=== PATIENT | male | born 1970 | race Caucasian/White ===

== ENCOUNTER 2018-12-25 18:09 | Emergency (ER) | payer OTHER ==
[2018-12-25 18:18] VITALS: BP 146/96
--- NOTE | 2018-12-25 18:22 | ED Physician Documentation ---
PD HPI UPPER EXT INJURY - Stated complaint Stated Complaint: RIGHT HAND FINGER INJ. - Chief complaint Chief Complaint: Ext Problem - History obtained from History obtained from: Patient - History of Present Illness Location: Right, Finger (2nd) Type of injury: Blunt / blow (He was pulling over a tree and it snapped and hit his second finger last night.) Review of Systems Constitutional: reports: Reviewed and negative Cardiac: reports: Reviewed and negative Respiratory: reports: Reviewed and negative PD PAST MEDICAL HISTORY - Present Medications Home Medications: Ambulatory Orders Medication Instructions Recorded Confirmed Dextroamphetamine/Amphetamine 25 mg PO 12/25/18 [Adderall Xr 25 mg Capsule] - Allergies Allergies/Adverse Reactions: Allergies Allergy/AdvReac Type Severity Reaction Status Date / Time No Known Drug Allergies Allergy Verified 12/25/18 18:17 PD ED PE NORMAL - Vitals Vital signs reviewed: Yes - General General: Alert and oriented X 3, No acute distress - Extremities Extremities: Other (The right second finger is pretty swollen and bruised on the palmar surface. He has difficulty with flexion but he can flex it. It seems like the difficulty is due to the swelling as opposed to a tendon injury. Normal neurovascular function of the tip. He is tender about the PIP.) - Neuro Neuro: Alert and oriented X 3, Normal speech Results - Vitals Vitals: Vital Signs - 24 hr 12/25/18 18:15 Temperature 36.7 C Heart Rate 53 L Respiratory 16 Rate Blood Pressure 146/96 H O2 Saturation 100 Oxygen O2 Source Room air - Rads (name of study) R 2nd finger Radiology: EMP read contemporaneously (There is a little avulsion fracture of the proximal phalanx, palmar side) Procedures - Splint (location) R 2nd finger Splint applied by: Physician Type of splint: Metal foam finger splint Other: Patient tolerated well, No complications Departure - Departure Disposition: 01 Home, Self Care Clinical Impression: Fracture of phalanx of right hand, closed Qualifiers: Encounter type: initial encounter Finger: index finger Phalanx: middle Fracture alignment: nondisplaced Qualified Code(s): S62.650A - Nondisplaced fracture of middle phalanx of right index finger, initial encounter for closed fracture Condition: Good Record reviewed to determine appropriate education?: Yes Instructions: ED Fx Finger Closed Follow-Up: [facility] [Provider Group] - Within 1 week Comments: Keep the splint on and dry, follow-up with the orthopedic surgeon within the week. Return for new or worsening symptoms. Ibuprofen as needed for pain.
--- NOTE | 2018-12-25 19:18 | XRAY Report ---
Reason: 2nd finger inj Procedure Date: 12/25/2018 Accession Number: [id number] / [id number] Procedure: XR - Finger(s) RT CPT Code: FULL RESULT: EXAM: RIGHT SECOND DIGIT RADIOGRAPHY EXAM DATE: 12/25/2018 06:27 PM. CLINICAL HISTORY: Swelling and pain of second digit COMPARISON: None. TECHNIQUE: 3 views. FINDINGS: Bones: Normal. No fracture or bone lesion. Joints: Normal. No subluxations. Soft Tissues: There is soft tissue swelling of the second digit. No foreign body. IMPRESSION: Soft tissue swelling without fracture or foreign body. RADIA ADDENDUM: 12/25/18 19:43 There is a hairline lucency through the middle phalanx at PIP joint which could represent an acute nondisplaced fracture.
== END 2018-12-25 18:55 | disposition home or self-care (01) ==
LOC: ED 18:09
DX: S62.650A Nondisplaced fracture of middle phalanx of right index finger, initial encounter for closed fracture (principal); W20.8XXA Other cause of strike by thrown, projected or falling object, initial encounter; Y93.H2 Activity, gardening and landscaping
CPT/HCPCS: 73140; 99282; 99283

== ENCOUNTER 2021-06-06 15:42 | Emergency (ER) | payer OTHER ==
[2021-06-06] MEDS ORDERED: IOVERSOL 320 100 ML VIAL IVP ONE ×2 (16:53→17:54)
[2021-06-06 17:00] LABS: MUDS CUTOFF CONCENTRATIONS CUTOFF CONC BELOW:
[2021-06-06 17:03] LABS: BILIRUBIN,URINE NEGATIVE (NEGATIVE); GLUCOSE, URINE (UA) NEGATIVE (NEGATIVE); KETONES,URINE (UA) NEGATIVE (NEGATIVE); LEUKOCYTE ESTERASE, URINE NEGATIVE (NEGATIVE); NITRITE,URINE NEGATIVE (NEGATIVE); OCCULT BLOOD,URINE TRACE-INTA (NEGATIVE); PH,URINE 5.5 PH (5.0-7.5); PROTEIN,URINE NEGATIVE (NEGATIVE); UROBILINOGEN,URINE 0.2 (NORMAL) E.U./dL (NORMAL)
[2021-06-06 17:04] LABS: BASOPHILS % (AUTO) 0.3 %; EOSINOPHILS % (AUTO) 0.4 %; HCT - HEMATOCRIT 45.3 % (42.0-52.0); LYMPHOCYTES # (AUTO) 1.6 10^3/uL (1.5-3.5); LYMPHOCYTES % (AUTO) 21.2 %; MEAN CORPUSCULAR HEMOGLOBIN 31.4 pg (27.0-31.0); MEAN CORPUSCULAR HGB CONC 35.3 g/dL (32.0-36.0); MEAN CORPUSCULAR VOLUME 88.8 fL (80.0-94.0); MEAN PLATELET VOLUME 9.1 fL (7.4-11.4); MONOCYTES # (AUTO) 0.6 10^3/uL (0.0-1.0); MONOCYTES % (AUTO) 7.4 %; NEUTROPHILS # (AUTO) 5.2 10^3/uL (1.5-6.6); NEUTROPHILS % (AUTO) 70.4 %; PLT - PLATELET COUNT 196 10^3/uL (130-450); RED CELL DISTRIBUTION WIDTH 12.1 % (12.0-15.0); WHITE BLOOD COUNT 7.4 x10^3/uL (4.8-10.8)
[2021-06-06 17:05] LABS: CLARITY,URINE CLEAR (CLEAR)
[2021-06-06 17:13] LABS: ACETAMINOPHEN < 10 ug/mL (10-30); ALBUMIN 4.6 g/dL (3.2-5.5); ALBUMIN/GLOBULIN RATIO 1.6 (1.0-2.2); ALKALINE PHOSPHATASE 78 IU/L (42-121); ALT ALANINE AMINOTRANSFERASE 30 IU/L (10-60); AST ASPARTATE AMINOTRANSFERASE 25 IU/L (10-42); BILIRUBIN,TOTAL 0.6 mg/dL (0.2-1.0); BUN - BLOOD UREA NITROGEN 17 mg/dL (6-20); CALCIUM 9.2 mg/dL (8.5-10.3); CARBON DIOXIDE - CO2 26 mmol/L (21-32); CHLORIDE 101 mmol/L (101-111); CREATININE 0.9 mg/dL (0.6-1.2); ETOH - ETHANOL < 5.0 mg/dL; GFR - MDRD 88 (>89); GLUCOSE 158 mg/dL (70-100); POTASSIUM 3.7 mmol/L (3.5-5.0); SALICYLATE < 6.0 mg/dL; SODIUM 135 mmol/L (135-145); TOTAL PROTEIN 7.4 g/dL (6.7-8.2)
[2021-06-06 17:14] LABS: AMPHETAMINE SCREEN,URINE POSITIVE (NEGATIVE); BARBITURATE SCREEN,UR NEGATIVE (NEGATIVE); BENZODIAZEPINES SCREEN, URINE NEGATIVE (NEGATIVE); COCAINE SCREEN URINE NEGATIVE (NEGATIVE); METHADONE SCREEN, URINE NEGATIVE (NEGATIVE); METHAMPHETAMINES SCREEN, URINE NEGATIVE (NEGATIVE); OPIATE SCREEN, URINE NEGATIVE (NEGATIVE); OXYCODONE SCREEN, URINE NEGATIVE (NEGATIVE); PROPOXYPHENE SCREEN, URINE NEGATIVE (NEGATIVE); THC CANNABINOID SCREEN, URINE NEGATIVE (NEGATIVE); TRICYCLIC ANTIDEPRESSANT,URINE NEGATIVE (NEGATIVE)
--- NOTE | 2021-06-06 17:33 | ED Physician Documentation ---
History of Present Illness - Stated complaint Stated Complaint: CONFUSION - Chief complaint Chief Complaint: Neuro - History obtained from History obtained from: Patient - History of Present Illness Timing: Today Pain level max: 0 Pain level now: 0 - Additonal information Additional information: Patient is a 51-year-old male who comes into the emergency department complaint of intermittent confusion for the past year. He states has been worse since starting the new antipsychotic medication 2 weeks ago. He denies any focal numbness or weakness. No speech difficulties. Occasionally has difficulty reading words. He states that he had a "mental break" 1 year ago. He is currently under the care of a psychiatrist. He states he is currently feeling better. No facial droop. No difficulty walking. No difficulty with urination or defecation. No headache. No trauma. No fevers. No chills. No recent illness. Review of Systems Ten Systems: 10 systems reviewed and negative Constitutional: denies: Fever, Chills Ears: denies: Ear pain Nose: denies: Rhinorrhea / runny nose, Congestion Throat: denies: Sore throat Cardiac: denies: Chest pain / pressure Respiratory: denies: Cough GI: denies: Nausea, Vomiting, Diarrhea Skin: denies: Rash Musculoskeletal: denies: Neck pain, Back pain Neurologic: denies: Headache PD PAST MEDICAL HISTORY - Past Medical History Past Medical History: Yes Psych: Bipolar disorder, ADD/ADHD - Past Surgical History Past Surgical History: No - Present Medications Home Medications: Ambulatory Orders Medication Instructions Recorded Confirmed Dextroamphetamine/Amphetamine 25 mg PO 12/25/18 [Adderall Xr 25 mg Capsule] - Allergies Allergies/Adverse Reactions: Allergies Allergy/AdvReac Type Severity Reaction Status Date / Time No Known Drug Allergies Allergy Verified 06/06/21 16:04 - Living Situation Living Arrangement: reports: At home - Social History Does the pt smoke?: No Smoking Status: Never smoker Does the pt have substance abuse?: No PD ED PE NORMAL - Vitals Vital signs reviewed: Yes - General General: Alert and oriented X 3, No acute distress, Well developed/nourished - HEENT HEENT: Atraumatic, PERRL, Moist mucous membranes, Pharynx benign - Neck Neck: Supple, no meningeal sign, No bony TTP - Cardiac Cardiac: RRR, Strong equal pulses - Respiratory Respiratory: No respiratory distress, Clear bilaterally - Abdomen Abdomen: Soft, Non tender, Non distended - Back Back: No spinal TTP - Derm Derm: Warm and dry - Extremities Extremities: No edema - Neuro Neuro: Alert and oriented X 3, 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, No motor deficit, No sensory deficit, Normal speech Eye Opening: Spontaneous Motor: Obeys Commands Verbal: Oriented GCS Score: 15 - Psych Psych: Normal mood, Normal affect Results - Vitals Vitals: Vital Signs - 24 hr 06/06/21 06/06/21 15:57 18:03 Temperature 36.7 C 36.7 C Heart Rate 102 H 69 Respiratory 18 12 Rate Blood Pressure 206/113 H 139/77 H O2 Saturation 98 98 Oxygen O2 Source Room air - EKG (time done) 1656 Rate: Rate (enter#) (92) Rhythm: NSR [place]: Normal Intervals: Normal [place] QRS: Normal Ischemia: Normal ST segments - Labs Labs: Laboratory Tests 06/06/21 06/06/21 06/06/21 16:52 16:52 16:52 WBC 7.4 RBC 5.10 Hgb 16.0 Hct 45.3 MCV 88.8 MCH 31.4 H MCHC 35.3 RDW 12.1 Plt Count 196 MPV 9.1 Neut # (Auto) 5.2 Lymph # (Auto) 1.6 [place] # (Auto) 0.6 Eos # (Auto) 0.0 Baso # (Auto) 0.0 Absolute Nucleated RBC 0.00 Nucleated RBC % 0.0 Sodium 135 Potassium 3.7 Chloride 101 Carbon Dioxide 26 Anion Gap 8.0 BUN 17 Creatinine 0.9 Estimated GFR (MDRD) 88 L Glucose 158 H Calcium 9.2 Total Bilirubin 0.6 AST 25 ALT 30 Alkaline Phosphatase 78 Total Protein 7.4 Albumin 4.6 Globulin 2.8 Albumin/Globulin Ratio 1.6 Urine Color YELLOW Urine Clarity CLEAR Urine pH 5.5 Ur Specific [place] >=1.030 H Urine Protein NEGATIVE Urine Glucose (UA) NEGATIVE Urine Ketones NEGATIVE Urine Occult Blood TRACE-INTA Urine Nitrite NEGATIVE Urine Bilirubin NEGATIVE Urine Urobilinogen 0.2 (NORMAL) Ur Leukocyte Esterase NEGATIVE Ur Microscopic Review NOT INDICATED Urine Culture Comments NOT INDICATED Salicylates < 6.0 Urine Opiates Screen NEGATIVE Ur Oxycodone Screen NEGATIVE Urine Methadone Screen NEGATIVE Ur Propoxyphene Screen NEGATIVE Acetaminophen < 10 L Ur Barbiturates Screen NEGATIVE Ur Tricyclics Screen NEGATIVE Ur Phencyclidine Scrn NEGATIVE Ur Amphetamine Screen POSITIVE H U Methamphetamines Scrn NEGATIVE U Benzodiazepines Scrn NEGATIVE Urine Cocaine Screen NEGATIVE U Cannabinoids Screen NEGATIVE Ethyl Alcohol < 5.0 - Rads (name of study) Angiogram head CT Radiology: Final report received, EMP read contemporaneously, See rad report (No acute abnormality) Angiogram neck CT Radiology: Final report received, EMP read contemporaneously, See rad report (No acute abnormality) PD MEDICAL DECISION MAKING - ED course Complexity details: reviewed results, re-evaluated patient, considered differential, d/w patient ED course: 51-year-old male with intermittent episodes of confusion and altered mental status. Has been ongoing intermittently since the last year. It seems worse after starting a new antipsychotic medication 2 weeks ago. Recommend he check with his psychiatrist to see about stopping or changing this medication. NIH stroke scale of 0. No significant lab abnormalities. No acute findings on angiogram of the head and neck Patient counseled regarding signs and symptoms for which I believe and urgent re-evaluation would be necessary. Patient with good understanding of and agreement to plan and is comfortable going home at this time This document was made in part using voice recognition software. While efforts are made to proofread this document, sound alike and grammatical errors may occur. Departure - Departure Disposition: 01 Home, Self Care Clinical Impression: Altered mental status Qualifiers: Altered mental status type: coma Coma depth: unspecified coma depth Qualified Code(s): R40.20 - Unspecified coma Condition: Good Instructions: ED Confusion Follow-Up: your,doctor within 1 week [Other] Comments: The cause of your symptoms is unclear today. It is recommended that you follow- up with your doctor within the next week to have an MRI of your brain ordered. Your CT scans do not show any acute abnormalities. There are no blood vessel abnormalities. Please return if you worsen. This may be related to your new medications. Please ask your doctor if you should continue this medication. Discharge Date/Time: 06/06/21 18:44 NIHSS - Time Time: 16:10 - Level of Consciousness Level of consciousness: (0) Alert, Keenly responsive LOC Questions: (0) Answers both Q's correct LOC Commands: (0) Performs both correctly - Gaze Best Gaze: (0) Normal - Visual Visual: (0) No loss - Facial Palsy Facial Palsy: (0) Normal, symmetrical movement - Motor Arms (both separate) Motor Arm (right): (0) No drift Motor Arm (left): (0) No drift - Motor Legs (both separate) Motor Leg (right): (0) No drift Motor Leg (left): (0) No drift - Limb Ataxia Limb Ataxia: (0) Absent - Sensory Sensory: (0) Normal - Best Language Best Language: (0) No aphasia - Dysarthria Dysarthria: (0) Normal - Extinction and Inattention (formally neg Extinction and inattention: (0) No abnormality - Total Score/Results Total Score/Result: 0
[2021-06-06 18:13] VITALS: BP 139/77
--- NOTE | 2021-06-06 18:16 | CT Report ---
PROCEDURE: ANGIO HEAD W/WO INDICATIONS: Difficulty speaking, comprehension difficulties CONTRAST: IV CONTRAST: Optiray 320 ml: 80 PO CONTRAST: *NO PO CONTRAST TECHNIQUE: Precontrast 4.5 mm thick angled axial sections acquired from the foramen magnum to the vertex. Afte r the administration of intravenous contrast, 1 mm thick sections acquired through the [employer] [place] is. Postcontrast 4.5 mm thick sections then re-acquired from the foramen magnum to the vertex. For radiation dose reduction, the following was used: automated exposure control, adjustment of mA and/o r kV according to patient size. COMPARISON: None FINDINGS: Image quality: Excellent. Anterior circulation: Intracranial internal carotid arteries are normal in size and flow. The flow within the paired anterior cerebral arteries is normal and symmetric. The flow within the middle cer ebral arteries is normal and symmetric. The anterior communicating artery is seen. No aneurysms are seen. Hypoplasia/aplasia of the right A1 KAVYA noted. The P2 segment is supplied by a widely patent p osterior communicating artery. Remainder of the distal vasculature unremarkable. Posterior circulation: Visualized portions of the vertebral arteries demonstrate normal caliber, and join to form a normal appearing basilar artery. Flow within the posterior cerebral arteries is norm al and symmetric. No aneurysms are seen. Left vertebral artery dominance CSF spaces: Ventricles are normal in size and shape. Basal cisterns are patent. No extra-axial flu id collections. Brain: No midline shift. No intracranial bleeds or masses. [place]-white matter interface appears int act. Skull and face: Calvarium and facial bones appear intact, without suspicious lesions. Sinuses: Visualized sinuses and mastoids are clear. IMPRESSION: 1. Unremarkable CT brain without intracranial hemorrhage or mass effect 2. Unremarkable CT angiogram of the brain without large vessel occlusion, aneurysm or vascular malfor mation. Reviewed by: Gideon Freeman MD on 06/06/2021 5:15 PM [facility] Approved by: Gideon Freeman MD on 06/06/2021 5:15 PM [facility] Station ID: [id number]
--- NOTE | 2021-06-06 18:19 | CT Report ---
PROCEDURE: CT angiogram neck INDICATIONS: Difficulty speaking, comprehension difficulties CONTRAST: IV CONTRAST: Optiray 320 ml: 80 PO CONTRAST: *NO PO CONTRAST TECHNIQUE: After the administration of intravenous contrast, 1.5 mm axial sections acquired from the aortic arch to the [place] of [place]. Coronal 3-D maximum intensity projection (MIP) and/or volume rendering ref ormats were then performed. For radiation dose reduction, the following was used: automated exposur e control, adjustment of mA and/or kV according to patient size. COMPARISON: None. FINDINGS: Image quality: Excellent. Carotid system: The great vessels demonstrate a conventional anatomy as they arise from the aortic a [facility]. The origins of the common carotid arteries appear patent. The common carotid arteries demonstr ate normal calibers and courses. The bifurcation regions appear normal bilaterally. The internal ca rotid arteries demonstrate normal caliber and course. Posterior circulation: The origins of the vertebral arteries appear patent. The more superior porti ons of the vertebral arteries demonstrate normal course and caliber. They join to form a normal appe aring basilar artery. Left vertebral artery dominance Soft tissues: Visualized neck soft tissues demonstrate no suspicious abnormalities. The thyroid is normal in size and there are no incidental findings. Bones: No suspicious bony lesions. Visualized cervical spine appears normally aligned. IMPRESSION: 1. Unremarkable CT angiogram of the neck without stenosis, aneurysm or malformation. The estimate of stenosis included in the report of the imaging study was calculated using the NASCET method Reviewed by: Gideon Freeman MD on 06/06/2021 5:18 PM [facility] Approved by: Gideon Freeman MD on 06/06/2021 5:18 PM [facility] Station ID: [id number]
== END 2021-06-06 18:44 | disposition home or self-care (01) ==
LOC: ED 15:42
DX: R40.20 Unspecified coma (principal)
CPT/HCPCS: 36415; 70496; 70498; 80053; 80306; 80307; 80320; 80329; 81003; 85025; 93005; 99283; 99284; Q9967; 81001; 87086